=== PATIENT | male | born 1945 | race Two or more races ===

== ENCOUNTER 2016-05-24 09:54 | Emergency (ER) | payer OTHER ==
[2016-05-24 10:08] VITALS: BP 167/75; PULSE 78; TEMP 97.9; BMI 26.6
--- NOTE | 2016-05-24 10:43 | PDOC ---
History of Present Illness - General Chief Complaint: Pain Stated Complaint: NECK PAIN, HEADACHE Time Seen by Provider: 05/24/16 10:34 History Source: Patient Exam Limitations: No Limitations - History of Present Illness Initial Comments: CHIEF COMPLAINT: 71 y/o afebrile male with PMH HTN c/o neck pain and stiffness for the past 4 days. HISTORY OF PRESENT ILLNESS: The patient states he woke up 4 days ago unable to move his neck. He states he's been taking 400mg of Ibuprofen every 6 hours for pain which does help a little bit. He denies trauma to the area, midline spine TTP, f/c and all other symptoms. Vital signs on arrival are within normal limits. REVIEW OF SYSTEMS: GENERAL/CONSTITUTIONAL: No fever/chills. No weakness. No weight change. HEAD, EYES, EARS, NOSE AND THROAT: No change in vision. No ear pain or discharge. No sore throat. MUSCULOSKELETAL: No joint or muscle swelling or pain. No back pain. +neck pain SKIN: No rash or easy bruising. NEUROLOGIC: No headache, vertigo, loss of consciousness, or loss of sensation. PHYSICAL EXAM: GENERAL: The patient is awake, alert, and fully oriented, in no acute distress. He is holding his head forward and won't turn his neck. HEAD: Normal with no signs of trauma. NECK: No midline cspine TTP or step offs. TTP of b/l trapezius and SCM muscles of neck. Pt can only turn head from side to side about [address] ENT: Pupils equal, round and reactive to light, extraocular movements intact, sclera anicteric, conjunctiva clear. Neck supple. EXTREMITIES: Normal range of motion, no edema. NEUROLOGICAL: Normal speech, normal gait. CN II-XII grossly intact. PSYCH: Normal mood, normal affect. SKIN: Warm, dry, normal turgor, no rashes or lesions noted. Past History - Past Medical History Allergies/Adverse Reactions: Allergies Allergy/AdvReac Type Severity Reaction Status Date / Time No Known Allergies Allergy Verified 05/24/16 10:08 Home Medications: Ambulatory Orders Amlodipine/Valsartan [Exforge 10-160 mg Tablet] 1 tab PO DAILY 05/24/16 Diazepam [Valium] 10 mg PO TID #20 tablet MDD 3 05/24/16 HTN: Yes - Surgical History Abdominal Surgery: Yes - Psycho/Social/Smoking Cessation Hx Suicidal Ideation: No Smoking History: Never smoked Information on smoking cessation initiated: No *Physical Exam - Vital Signs Last Vital Signs Temp Pulse Resp BP Pulse Ox 97.9 F 78 18 167/75 98 05/24/16 10:03 05/24/16 10:03 05/24/16 10:03 05/24/16 10:03 05/24/16 10:03 Medical Decision Making - Medical Decision Making A/P: 71 y/o male with torticollis. Will give PO valium in fastrack. His is driving him home. Instructed him to take 600mg of Ibuprofen every 6 hours for pain with food and valium as prescribed for muscle relaxer. informed him valium may cause drowsiness. Suggested he stretch multiple times day, apply heat and massage to affected area and f/u with his PCP if no improvement within 1 week. The patient verbalizes understanding of all instructions, has no further questions and is awaiting discharge. *DC/Admit/Observation/Transfer Diagnosis at time of Disposition: Torticollis - Discharge Dispostion Disposition: HOME Condition at time of disposition: Stable - Prescriptions Prescriptions: Diazepam [Valium] 10 mg PO TID #20 tablet MDD 3 - Referrals Referrals: Alexandra Templeton [Primary Care Provider] - - Patient Instructions Printed Discharge Instructions: DI for Torticollis Additional Instructions: Discharge Instructions: -Take Valium as prescribed; may cause drowsiness -Take 600mg of Ibuprofen every 6 hours with food -Stretch your neck multiple times a day -Apply heating pad and massage to your neck -Follow up with your doctor as soon as possible
[2016-05-24] MEDS ORDERED: diazePAM 5 MG TABLET PO ONE (10:44)
[2016-05-24] MEDS ORDERED: diazePAM 5 MG TABLET ONE (10:45)
== END 2016-05-24 10:55 | disposition home or self-care (01) ==
LOC: JERFT 09:54
DX: M43.6 Torticollis (principal); I10 Essential (primary) hypertension
CPT/HCPCS: 99281-25

== ENCOUNTER 2017-12-09 14:59 | Observation (INO) | payer OTHER ==
[2017-12-09 15:02] VITALS: BMI 26.6
--- NOTE | 2017-12-09 15:09 | PDOC ---
History of Present Illness - General Chief Complaint: Pain Stated Complaint: CHEST PAIN Time Seen by Provider: 12/09/17 15:09 - History of Present Illness Initial Comments: 12/09/17 15:27 Mr. Castillo is a 72 yo male w/ pmh of HTN who presents for evaluation of left sided chest pain. Patient reports he was walking into his home 2 days ago when he suddenly "blacked out" and woke up on the ground. He denies hitting his head however is unsure how long he was unconscious for. Patient reports starting yesterday he began to have left sided chest pain which was exacerbated by an episode of sneezing and caused 10/10 pain, prompting his arrival. Patient reports this prompted his arrival for evaluation; also endorses recent cold- like symptoms of runny nose. The patient denies shortness of breath, headache and dizziness. Denies fever, chills, nausea, vomit, diarrhea and constipation. Denies dysuria, frequency, urgency and hematuria. Allergies: NKDA Past History - Past Medical History Allergies/Adverse Reactions: Allergies Allergy/AdvReac Type Severity Reaction Status Date / Time No Known Allergies Allergy Verified 12/09/17 15:02 Home Medications: Ambulatory Orders Amlodipine/Valsartan [Exforge 10-160 mg Tablet] 1 tab PO DAILY 05/24/16 COPD: No HTN: Yes - Surgical History Abdominal Surgery: Yes - Suicide/Smoking/Psychosocial Hx Smoking History: Never smoked Review of Systems - Review of Systems Comments:: 12/09/17 15:32 GENERAL/CONSTITUTIONAL: No fever or chills. No weakness. HEAD, EYES, EARS, NOSE AND THROAT: No change in vision. No ear pain or discharge. No sore throat. CARDIOVASCULAR: +Chest pain as described. No shortness of breath RESPIRATORY: +Sneezing. No cough, wheezing, or hemoptysis. GASTROINTESTINAL: No nausea, vomiting, diarrhea or constipation. GENITOURINARY: No dysuria, frequency, or change in urination. MUSCULOSKELETAL: No joint or muscle swelling or pain. No neck or back pain. SKIN: No rash NEUROLOGIC: No headache, vertigo, loss of consciousness, or change in strength/ sensation. ENDOCRINE: No increased thirst. No abnormal weight change HEMATOLOGIC/LYMPHATIC: No anemia, easy bleeding, or history of blood clots. ALLERGIC/IMMUNOLOGIC: No hives or skin allergy. *Physical Exam - Vital Signs Last Vital Signs Temp Pulse Resp BP Pulse Ox 98 F 72 18 143/59 99 12/09/17 15:00 12/09/17 15:00 12/09/17 15:00 12/09/17 15:00 12/09/17 15:00 - Physical Exam Comments: 12/09/17 15:33 GENERAL: Awake, alert, and fully oriented, in no acute distress HEAD: No signs of trauma, normocephalic, atraumatic EYES: PERRLA, EOMI, sclera anicteric, conjunctiva clear ENT: Auricles normal inspection, hearing grossly normal, nares patent, oropharynx clear without exudates. Moist mucosa NECK: Normal ROM, supple, no lymphadenopathy, JVD, or masses LUNGS: +Reproducible chest pain w/ shoulder shrug against resistance and sideways movement. No distress, speaks full sentences, clear to auscultation bilaterally HEART: Regular rate and rhythm, normal S1 and S2, no murmurs, rubs or gallops, peripheral pulses normal and equal bilaterally. ABDOMEN: Soft, nontender, normoactive bowel sounds. No guarding, no rebound. No masses EXTREMITIES: Normal inspection, Normal range of motion, no edema. No clubbing or cyanosis. NEUROLOGICAL: Cranial nerves II through XII grossly intact. Normal speech, normal gait, no focal sensorimotor deficits SKIN: Warm, Dry, normal turgor, no rashes or lesions noted. Heart Score/ECG Review - History History: Moderately suspicious - Electrocardiogram EKG: Non specific repolarization disturbance - Age Age: >/= 65 - Risk Factors Risk Factors Heart Score: Yes Hx Hypertension Based on the list above the patient has:: 1-2 risk factors - Troponin Troponin: </= normal limit - Score Heart Score - Total: 5 ED Treatment Course - LABORATORY CBC & Chemistry Diagram: 12/09/17 15:28 12/09/17 15:35 Medical Decision Making - Medical Decision Making 12/09/17 16:57 Mr. Castillo is a 72 yo male w/ pmh as described who presents for evaluation of drop syncope w/ chest pain. Cardiac/syncope workup started w/ labs as below, also EKG w/ head CT and chest CTA for r/o PE. BUN/Cr mildly elevated as below. Decision made to proceed w/ CTA as risks outweigh benefits at this time. Head CT negative, Chest CTA also negative. Labs otherwise grossly wnl as below. EKG significant for non-specific t-wave abnormalities; HEART score of 5. Will admit per hospital policy for cardiac evaluation. Inpatient team paged for admission. Laboratory Results - last 24 hr 12/09/17 12/09/17 15:28 15:35 WBC 8.9 RBC 4.05 Hgb 13.2 Hct 38.4 MCV 94.9 MCH 32.5 MCHC 34.3 RDW 13.7 Plt Count 236 MPV 8.3 Absolute Neuts (auto) 5.9 Neutrophils % 67.0 Lymphocytes % 16.6 Monocytes % 13.0 H Eosinophils % 2.3 Basophils % 1.1 Nucleated RBC % 0 Sodium 140 Potassium 4.7 Chloride 107 Carbon Dioxide 20 L Anion Gap 13 BUN 27 H Creatinine 1.5 H Creat Clearance w eGFR 45.87 Random Glucose 104 Calcium 8.5 Phosphorus 3.9 Magnesium 2.4 Total Bilirubin 0.8 AST 19 ALT 35 Alkaline Phosphatase 103 Creatine Kinase 133 Troponin I < 0.02 Total Protein 7.2 Albumin 3.8 12/09/17 19:03 *DC/Admit/Observation/Transfer Diagnosis at time of Disposition: Chest pain Qualifiers: Chest pain type: unspecified Qualified Code(s): R07.9 - Chest pain, unspecified Syncope Qualifiers: Syncope type: unspecified Qualified Code(s): R55 - Syncope and collapse - Discharge Dispostion Decision to Admit order: Yes - Referrals Referrals: Alexandra Templeton [Primary Care Provider] - - Patient Instructions - Post Discharge Activity
[2017-12-09 15:45] LABS: BASO % 1.1 % (0-2.0); EOS % 2.3 % (0-4.5); HEMATOCRIT 38.4 % (35.4-49); HEMOGLOBIN 13.2 GM/dL (11.7-16.9); LYMPH % 16.6 % (8-40); MCH 32.5 pg (25.7-33.7); MCHC 34.3 g/dl (32.0-35.9); MEAN CELL VOLUME 94.9 fl (80-96); MEAN PLT VOLUME 8.3 fl (7.5-11.1); PLATELET COUNT 236 K/MM3 (134-434); RBC 4.05 M/mm3 (4.00-5.60); RDW 13.7 % (11.9-15.9); WHITE BLOOD COUNT 8.9 K/mm3 (4.0-10.0)
--- NOTE | 2017-12-09 16:00 | PDOC ---
Attending Attestation - Resident Resident Name: Dexter Stahl - ED Attending Attestation I have performed the following: I have examined & evaluated the patient, The case was reviewed & discussed with the resident, I agree w/resident's findings & plan, Exceptions are as noted - HPI HPI: 12/09/17 15:56 72 year old male with past medical history of HTN presents with syncope and chest pain. Two days ago, the patient was in his usual state of health. Was doing nothing in particular when he had sudden drop syncope. Fell on the ground. Unsure if he hit his head. Did not have chest pain or SOB or palpitations. Did not go see a doctor for this. Yesterday, started to develop a midsternal pleuritic midsternal chest pain without SOB, radiation, diaphoresis, nausea, vomiting. Initially started as intermittent and became constant. First time episode, Pt reports movements like deep breathing and sneezing can worsen pain. Does not recall prior stress or echo test. No recent illnesses, fevers, chills, cough, vomiting, diarrhea. - Physicial Exam PE: 12/09/17 15:59 GENERAL: Awake, alert, and fully oriented, in no acute distress HEAD: No signs of trauma EYES: EOMI, sclera anicteric, conjunctiva clear ENT: Auricles normal inspection, hearing grossly normal, nares patent, Moist mucosa NECK: Normal ROM, supple, LUNGS: Breath sounds equal, clear to auscultation bilaterally. No wheezes, and no crackles HEART: Regular rate and rhythm, normal S1 and S2, no murmurs, rubs or gallops ABDOMEN: Soft, nontender,. No guarding, no rebound. No masses EXTREMITIES: Normal range of motion, no edema. No clubbing or cyanosis. No cords, erythema, or tenderness NEUROLOGICAL: Cranial nerves II through XII grossly intact. Normal speech, SKIN: Warm, Dry, normal turgor, no rashes or lesions noted. - Medical Decision Making 12/09/17 15:59 Vital Signs Temp Pulse Resp BP Pulse Ox 98 F 72 18 143/59 99 12/09/17 15:00 12/09/17 15:00 12/09/17 15:00 12/09/17 15:00 12/09/17 15:00 Pt with drop syncope and with pleuritic chest pain. Will need to r/o cardiac etiology. Place patient on telemetry. Chest pain: rule out MS. However, given syncope and pleuritic chest pain, obtain CTA chest to r/o PE. Ultimately, given his age and hx of HTN, will need further inpatient workup. Admit. Heart Score/ECG Review - History History: Moderately suspicious - Electrocardiogram EKG: Non specific repolarization disturbance - Age Age: >/= 65 - Risk Factors Risk Factors Heart Score: Yes Hx Hypertension Based on the list above the patient has:: 1-2 risk factors #1 ECG reviewed & interpreted by me at: 15:10 12/09/17 15:55 NSR 65, no std/jeanine, TWI II, normal axis, normal intervals, QTC 401 msec, no brugada, no HOCM, no WPW
[2017-12-09 16:27] LABS: ALBUMIN 3.8 g/dl (3.4-5.0); ANION GAP 13 MMOL/L (8-16); BILIRUBIN,TOTAL 0.8 mg/dL (0.2-1.0); BLOOD UREA NITROGEN 27 mg/dL (7-18); CALCIUM 8.5 mg/dL (8.5-10.1); CHLORIDE 107 mmol/L (98-107); CO2 20 mmol/L (21-32); CREATININE 1.5 mg/dL (0.55-1.3); GLUCOSE,RANDOM 104 mg/dL (74-106); MAGNESIUM 2.4 mg/dL (1.8-2.4); PHOSPHOROUS 3.9 mg/dL (2.5-4.9); POTASSIUM 4.7 mmol/L (3.5-5.1); SGOT/AST 19 U/L (15-37); SGPT/ALT 35 U/L (13-61); SODIUM 140 mmol/L (136-145); TOT PROT 7.2 g/dl (6.4-8.2)
[2017-12-09 16:29] LABS: ALK PHOS 103 U/L (45-117)
--- NOTE | 2017-12-09 19:21 | PN ---
Teaching Attending Note Name of Resident: Socorro Rapp ATTENDING PHYSICIAN STATEMENT I saw and evaluated the patient. I reviewed the resident's note and discussed the case with the resident. I agree with the resident's findings and plan as documented. SUBJECTIVE: Patient is a 72 year old man with PMH of HTN and 2 knee replacements who presents for evaluation of left sided chest pain. Patient reports he was walking into his home 2 days ago when he suddenly "blacked out" and woke up on the ground. He denies hitting his head however is unsure how long he was unconscious for. Patient reports starting yesterday he began to have left sided chest pain which was exacerbated by an episode of sneezing and caused 10/10 pain , prompting his arrival. Patient reports this prompted his arrival for evaluation; also endorses recent cold-like symptoms of runny nose. OBJECTIVE: Alert and not orthostatic Vital Signs Period Temp Pulse Resp BP Sys/Quinn Pulse Ox Last 24 Hr 98 F-98 F 65-72 17-18 143-156/59-86 99-100 HEENT: No Jaundice, eye redness or discharge, PERRLA, EOMI. Normocephalic, atraumatic. External ears are normal and hearing is grossly intact. No nasal discharge. Neck: Supple, nontender. No palpable adenopathy or thyromegaly. No JVD Chest: Good effort. Clear to auscultation; left lateral chest wall tenderness. Heart: Regular. No S3, rub or murmur Abdomen: Not distended, soft, nontender and no HSM. No rebound or guarding. Normoactive bowel sounds. Ext: Peripheral pulses intact. No leg edema. Skin: Warm and dry. No petechiae, rash or ecchymosis. Neuro: Alert. Oriented x3. CN 2-12 grossly intact. Sensation grossly intact in all four extremities and DTR are symmetric. Home Medications Medication Instructions Recorded Amlodipine/Valsartan [Exforge 1 tab PO DAILY 05/24/16 10-160 mg Tablet] Abnormal Lab Results 12/09/17 12/09/17 15:28 15:35 Monocytes % 13.0 H Carbon Dioxide 20 L BUN 27 H Creatinine 1.5 H ASSESSMENT AND PLAN: 1. Syncope and Chest pain - Chest pain is atypical an the concern is for rib fracture or pneumothorax - not seen on CXR - awaiting chest CTPA result. Will rule out ACS on telemetry. Get ECHO, carotid doppler and brain MRI to investigate syncope. Consult Cardiology and Neurology. 2. SUKHWINDER - High urine SG suggests dehydration. Get kidney sonogram and hydrate gently. Avoid nephrotoxic agents such as NSAIDS, aminoglycosides, contrast dyes and certain Alternative medicine products. 3. DVT prophylaxis - Heparin 5000u sq tid. 4. Advance directives - Full code
[2017-12-09 20:09] LABS: URINE APPEARANCE CLEAR; URINE BILIRUBIN NEGATIVE (<2.0 mg/dL); URINE COLOR STRAW; URINE GLUCOSE (UA) NEGATIVE (NEGATIVE); URINE KETONE NEGATIVE (NEGATIVE); URINE LEUK ESTERASE NEGATIVE (NEGATIVE); URINE NITRITE NEGATIVE (NEGATIVE); URINE PROTEIN NEGATIVE (NEGATIVE); URINE UROBILINOGEN NEGATIVE mg/dL (0.2-1.0)
[2017-12-09] MEDS ORDERED: HEPARIN NA (PORCINE) 5,000 UNITS/ML 1ML VIAL SQ SCH (20:15)
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
[2017-12-09] MEDS ORDERED: HEPARIN NA (PORCINE) 5,000 UNITS/ML 1ML VIAL ONE (20:38)
[2017-12-09 20:50] VITALS: TEMP 99.3
[2017-12-09 21:32] VITALS: BP 158/59; PULSE 69
--- NOTE | 2017-12-09 23:31 | PN ---
Progress Note (short form) - Note Progress Note: Patient expressed his wishes to leave the hospital against medical advice. The risks such as, worsening chest pain and dyspnea, possible future syncopal episodes, permanent disability and even , were relayed to the patient. Patient understands this, says that he is going to follow up with his PCP and will return to the hospital if need be,
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
[2017-12-10] MEDS ORDERED: amLODIPine BESYLATE 10 MG TABLET (FP) PO SCH (10:00)
[2017-12-10] MEDS ORDERED: PATIENT'S OWN MEDICATION (NON-FORMULARY) (Amlodipine/Valsartan [Exforge 10-160 Mg Tablet] PO SCH (10:00)
[2017-12-10] MEDS ORDERED: VALSARTAN 160 MG TABLET (UD) PO SCH (10:00)
--- NOTE | 2017-12-10 14:33 | EKG ---
Test Reason : Blood Pressure : / mmHG Vent. Rate : 065 BPM Atrial Rate : 065 BPM P-R Int : 198 ms QRS Dur : 082 ms QT Int : 386 ms P-R-T Axes : 060 038 082 degrees QTc Int : 401 ms NORMAL SINUS RHYTHM NONSPECIFIC T WAVE ABNORMALITY ABNORMAL ECG NO PREVIOUS ECGS AVAILABLE Confirmed by KEELY JIMÉNEZ MD ([id number]) on 12/10/2017 2:33:01 PM Referred By: Confirmed By:KEELY JIMÉNEZ MD
== END 2017-12-10 06:42 | disposition left against medical advice (07) ==
LOC: JER 14:59 → JERBED 18:55
PROVIDERS: ADMIT Internal Medicine; ATTEND Internal Medicine
DX: R07.9 Chest pain, unspecified (principal); R55 Syncope and collapse; N17.9 Acute kidney failure, unspecified; E86.0 Dehydration; I10 Essential (primary) hypertension; F10.10 Alcohol abuse, uncomplicated; Z87.891 Personal history of nicotine dependence; Z96.659 Presence of unspecified artificial knee joint; Z90.49 Acquired absence of other specified parts of digestive tract
CPT/HCPCS: 36415; 70450-TC; 71045-TC-FY; 71275-TC; 80053; 81003; 82550; 83735; 84100; 84484; 85025; 87086; 93005; 93010; 99285-25; G0378